=== PATIENT | male | born 2000 | race Two or more races ===

== ENCOUNTER 2024-07-19 18:02 | Emergency (ER) | payer MEDICAID | END 2024-07-19 20:15 | disposition home or self-care (01) | LOC: FB.ED 18:02 | DX: J06.9 Acute upper respiratory infection, unspecified (principal); J45.909 Unspecified asthma, uncomplicated; F17.210 Nicotine dependence, cigarettes, uncomplicated; Z79.51 Long term (current) use of inhaled steroids | CPT/HCPCS: 87428-QW; 99283 ==

== ENCOUNTER 2024-09-30 17:11 | Emergency (ER) | payer MEDICAID | END 2024-09-30 19:20 | disposition home or self-care (01) | LOC: FB.ED 17:11 | DX: R09.1 Pleurisy (principal); F17.210 Nicotine dependence, cigarettes, uncomplicated; Z79.899 Other long term (current) drug therapy | CPT/HCPCS: 71046; 87428-QW; 99283; 99285 ==